=== PATIENT | female | born 1990 ===

== ENCOUNTER 2025-08-17 04:44 | Emergency (ER) | payer BC, OTHER ==
[~2025-08-17] VITALS: Ht 165.1 cm; Wt 54.0 kg
[2025-08-17 04:47] VITALS: BP 137/95; PULSE 96; RESP 18; TEMP 97.8; O2SAT 98
--- NOTE | 2025-08-17 06:31 | ED.PDOC ---
History of Present Illness HPI Comments 34F presents to the ER with a chief complaint of flu-like symptoms. Patient reports on having a wet cough with green phlegm, sore throat, earaches, headache for the past two weeks. Patient states that the symptoms has been worsening since. Patient notes on her 2-year-old being sick at home as well. Denies any other symptoms at this time. Denies fevers chills night sweats unintentional weight loss Denies persistent chest pain, shortness of breath, leg swelling Denies history of asthma nor any breathing conditions Denies history of pneumonia Denies recent international travel Chief Complaint: Flu like Time Seen by MD: 06:30 Reviewed Notes: Nurses Notes, Medications, Allergies Information Source: Patient Mode of Arrival: Ambulatory Timing: Weeks Duration: Since onset Prehospital treatment: None Severity: Moderate Context: Recent: Sore throat Modifying Factors: Nothing Associated Signs and Symptoms: Headache Past Medical History PAST MEDICAL HISTORY: Denies Surgical History: Denies all surgeries PLANT SCIENTIST History: No Pertinent PLANT SCIENTIST History Family History Family History: Reviewed,noncontributory to illness, Unknown Social History Smoker: Non-Smoker Alcohol: Denies ETOH Use Drugs: Denies Drug Use Lives In: Home Constitutional: No Symptoms Reported EENTM: Ear Pain, Throat Swelling (Sore throat) Respiratory: Cough Cardiovascular: No Symptoms Reported Gastrointestinal: No Symptoms Reported Genitourinary: No Symptoms Reported Neurological: Headache Musculoskeletal: No Symptoms Reported Integumentary: No Symptoms Reported Allergic/Immunocompromised: others Hematologic/Lymphatic: No Symptoms Reported Endocrine: No Symptoms Reported Psychiatric: No symptoms Reported All Other Systems: Reviewed and Negative Physical Exam General Appearance: No Apparent Distress, Normal HEENT: Normal ENT Inspection, Pharynx Normal, TMs Normal Neck: Full Range of Motion, Non-Tender, Normal, Normal Inspection Respiratory: Chest Non-Tender, Lungs Clear, No Accessory Muscle Use, No Respir atory Distress, Normal Breath Sounds Cardiovascular: No Edema, No JVD, No Murmur, No Gallop, Normal Peripheral Pulses, Regular Rate/Rhythm Breast Exam: Deferred Gastrointestinal: No Organomegaly, Non Tender, No Pulsatile Mass, Normal Bowel Sounds, Soft Genitalia: Deferred Pelvic: Deferred Rectal: Deferred Extremities: No calf tenderness, Normal capillary refill, Normal inspection, Normal range of motion, Non-tender, No pedal edema Musculoskeletal : Apperance: Normal Neurologic: Alert, career guidance counselor II-XII nml as Tested, No Motor Deficits, Normal Affect, Normal Mood, No Sensory Deficits Cerebellar Function: Normal Reflexes: Normal Skin: Dry, Normal Color, Warm Lymphatic: No Adenopathy Was a procedure done? Was a procedure done?: No Fever Differential Dx Differential Diagnosis: Viral Syndrome, Other X-Ray, Labs, Meds, VS Vital Signs Date Time Temp Pulse Resp B/P (MAP) Pulse Ox O2 Delivery O2 Flow Rate FiO2 08/17/25 04:47 97.8 96 18 137/95 98 97.8 X-Ray, Labs, Meds, VS Comment 34F presents to the ER with a chief complaint of flu-like symptoms. Patient arrives alert and oriented, ABC's intact, afebrile, vital signs stable, saturating well in room air Patient is stable for discharge at this time. External notes reviewed. Test results and diagnostic imaging interpreted. All diagnostic findings, discharge care, education and instructions provided Follow-up with PCP in 2 to 3 days Patient verbalized understanding and agreed to treatment plan Vital signs stable, afebrile, no acute distress noted Patient ambulatory with strong steady gait Advised to return precautions for any new or worsening symptoms, return to ER immediately for re-evaluation Patient is aware that the purpose of this visit was for an acute medical emergency requiring emergent stabilization. Chronic conditions, including malignancies have not been ruled out. Patient is instructed to follow up with PCP as directed and discharge instructions for continued care and workup. If unable to arrange follow-up, patient is to return to the emergency department for reassessment. Patient (parent or legal guardian if applicable) was given verbal and written discharge instructions and acknowledges understanding. Time of 1ST Reevaluation: 07:00 Reevaluation 1ST: Unchanged Patient Education/Counseling: Diagnosis, Treatment, Prognosis Family Education/Counseling: No Family Present SEPSIS Sepsis Screen Date sepsis recognized/suspect: Aug 17, 2025 Time Sepsis recognized/suspect: 0449 Recent Procedure: No On Antibiotic Therapy: No Respiratory Rate >20: No Heart Rate >90: No Temp<36 C (96.8 F) or >38.3 C: No SBP <90 or MAP <65 mmHG: No New Acute Mental Status Change: No Is the patient on CPAP, BIPAP,: No Vital Signs Date Time Temp Pulse Resp B/P (MAP) Pulse Ox O2 Delivery O2 Flow Rate FiO2 08/17/25 04:47 97.8 96 18 137/95 98 97.8 Departure 1 Departure Time of Disposition: 07:01 Impression: Primary Impression: Bronchitis Disposition: 01 HOME / SELF CARE / HOMELESS Condition: Stable e-Prescriptions Promethazine-Dm (Promethazine Dm 6.25-15 mg/5Ml) 1 Sophia Sophia 5 ML PO TIDPRN PRN for 10 Days, #150 ML 0 Refills Prov: PATTI XIONG NP 08/17/25 Benzonatate (Benzonatate) 200 Mg Cap 1 CAP PO TID for 10 Days, #30 CAP 0 Refills Prov: PATTI XIONG NP 08/17/25 Azithromycin (Azithromycin) 250 Mg Tab 250 MG PO DAILY MDD 500 for 5 Days, #6 TAB 0 Refills 2 TABLETS ORALLY ON DAY ONE, THEN 1 TABLET ORALLY DAILY FOR 4 DAYS Prov: PATTI XIONG NP 08/17/25 Discharged With: Self Critical Care Note Critical Care Time?: No Stability Stability form required: No Heart Score Heart Score: Heart Score Response (Comments) Value History N/A 0 EKG N/A 0 Age N/A 0 Risk Factors N/A 0 Troponin N/A 0 Total 0 I personally scribed for PATTI XIONG NP ([email or web address]) on 08/17/25 at 06:31. Electronically submitted by Ed Cao (Park[employer]). I personally scribed for PATTI XIONG NP ([email or web address]) on 08/17/25 at 07:02. Electronically submitted by Ed Cao ([employer]). PATTI XIONG NP Aug 17, 2025 06:31
[2025-08-17] MEDS ORDERED: AZIT-43 PO (06:58)
[2025-08-17] MEDS ORDERED: PROM1SOL4 PO (06:58)
[2025-08-17] MEDS ORDERED: BENZ200C64 PO (06:58)
== END 2025-08-17 07:22 | disposition home or self-care (01) ==
LOC: ER 04:44
DX: J40 Bronchitis, not specified as acute or chronic (principal); Z79.899 Other long term (current) drug therapy